=== PATIENT | female | born 1990 | race Caucasian/White ===

== ENCOUNTER 2023-03-05 01:29 | Inpatient (IN) | payer BC, OTHER ==
[2023-03-05] MEDS ORDERED: Oxytocin/Lactated Ringers 10 UNIT/1,000 ML BAG IV SCH (13:15)
[2023-03-05] MEDS: Lactated Ringers 1,000 ML IV SCH ×2 (13:53→17:52)
[2023-03-05] MEDS ORDERED: Penicillin G Potassium 5 MILLUNITS in Sodium Chloride 0.9% 100 ML IV ONE (14:00)
[2023-03-05 14:03] LABS: HEMATOCRIT 36.2 % (34.1-44.9); HEMOGLOBIN 12.3 gm/dl (11.2-15.7); MEAN CORPUSCULAR HEMOGLOBIN 31.5 pg (25.6-32.2); MEAN CORPUSCULAR VOLUME 92.6 fl (79.4-94.8); MEAN PLATELET VOLUME 9.5 fl (9.4-12.3); PLATELET COUNT,PLT 272 K/mm3 (182-369); RED BLOOD CELL COUNT 3.91 M/mm3 (3.98-5.22); WHITE BLOOD CELL COUNT,WBC 16.33 K/mm3 (3.98-10.04)
[2023-03-05] MEDS ORDERED: Nalbuphine 10 MG/0.5 ML Syringe IM ONE (17:10)
[2023-03-05] MEDS ORDERED: diphenhydrAMINE 50 MG/ML SDV IVPUSH PRN (17:45)
[2023-03-05] MEDS ORDERED: fentaNYL 100 MCG/2 ML SDV EPIDUR PRN (17:45)
[2023-03-05] MEDS ORDERED: Bupivacaine/fentaNYL/NS 100 ML Bag EPIDUR PRN (17:45)
[2023-03-05] MEDS ORDERED: ePHEDrine 50 MG/ML SDV IVPUSH PRN (17:45)
[2023-03-05] MEDS ORDERED: Penicillin G Potassium 5,000,000 Unit Vial ONE (19:12)
[2023-03-05 19:13] LABS: APPEARANCE,URINE CLEAR (Clear); BILIRUBIN,URINE NEGATIVE (Negative); COLOR,URINE YELLOW (Yellow); GLUCOSE,URINE NEGATIVE (Negative); KETONES,URINE 1+ (Negative); LEUKOCYTE ESTERASE,URINE 1+ (Negative); NITRITE,URINE NEGATIVE (Negative); OCCULT BLOOD,URINE 2+ (Negative); PROTEIN,URINE TRACE (Negative); UROBILINOGEN,URINE 0.2 (0.2-1.0)
[2023-03-05 19:33] LABS: BACTERIA,URINE FEW /hpf (FEW); MUCUS,URINE FEW /hpf (FEW); WBC,URINE 0-5 /hpf (0-5)
[2023-03-05] MEDS: Penicillin G Potassium 2.5 MILLUNITS in Sodium Chloride 0.9% 100 ML IV SCH ×2 (19:49→22:31)
[2023-03-06] MEDS ORDERED: Lidocaine 1% 10 ML MDV ONE
[2023-03-06] MEDS ORDERED: Metoclopramide 10 MG/2 ML SDV IVPUSH ONE (00:34)
[2023-03-06] MEDS ORDERED: ceFAZolin 2 GM in Sodium Chloride 0.9% 50 ML IV ONE (00:34)
[2023-03-06] MEDS ORDERED: Citric Acid/Sodium Citrate Solution 30 ML Cup PO ONE (00:34)
[2023-03-06] MEDS ORDERED: Tranexamic Acid 1,000 MG/10 ML Vial ONE (00:45)
[2023-03-06] MEDS ORDERED: Sodium Bicarbonate 8.4% 50 MEQ/50 ML SDV ONE (01:02)
[2023-03-06] MEDS ORDERED: fentaNYL 100 MCG/2 ML SDV ONE (01:02)
[2023-03-06] MEDS ORDERED: Lidocaine 2% with EPINEPHrine 1:200,000 20 ML SDV ONE (01:02)
[2023-03-06] MEDS ORDERED: Morphine PF 1 MG/ML Amp ONE (01:11)
[2023-03-06] MEDS ORDERED: ceFAZolin 2 GM Vial ONE (01:12)
[2023-03-06] MEDS ORDERED: Bupivacaine 0.25% 10 ML SDV ONE (01:21)
[2023-03-06] MEDS ORDERED: Bupivacaine 0.5% 10 ML SDV ONE (01:21)
[2023-03-06] MEDS ORDERED: Dexmedetomidine 200 MCG/2 ML SDV ONE (01:22)
[2023-03-06] MEDS ORDERED: Bupivacaine 0.5% 30 ML SDV ONE (01:22)
[2023-03-06] MEDS ORDERED: Oxytocin 10 Units/1 ML SDV ONE ×2 (01:27→02:03)
[2023-03-06] MEDS ORDERED: Lactated Ringers 1,000 ML ONE ×2 (01:28→02:03)
[2023-03-06] MEDS ORDERED: Misoprostol 200 MCG Tab ONE (01:36)
[2023-03-06] MEDS ORDERED: ePHEDrine 50 MG/ML SDV ONE (01:38)
[2023-03-06] MEDS ORDERED: Carboprost Tromethamine 250 MCG/1 ML Amp ONE (01:44)
[2023-03-06] MEDS ORDERED: Ondansetron 4 MG/2 ML SDV IVPUSH PRN (02:48)
[2023-03-06] MEDS ORDERED: diphenhydrAMINE 50 MG/ML SDV IVPUSH PRN ×2 (02:48→03:30)
[2023-03-06] MEDS ORDERED: fentaNYL 100 MCG/2 ML SDV IVPUSH PRN (02:48)
[2023-03-06 03:14] LABS: INR 0.93
[2023-03-06 03:15] LABS: PTT,PARTIAL THROMBOPLSTIN TIME 27.5 SECONDS (21.7-31.4)
[2023-03-06] MEDS ORDERED: ePHEDrine 50 MG/ML SDV IVPUSH PRN (03:30)
[2023-03-06] MEDS ORDERED: Acetaminophen/oxyCODONE 325-5 MG Tab PO PRN (03:30)
[2023-03-06] MEDS ORDERED: Dextrose 5%-Lactated Ringers 1,000 ML IV SCH (03:30)
[2023-03-06] MEDS ORDERED: Naloxone 0.4 MG/ML SDV IVPUSH PRN (03:30)
[2023-03-06] MEDS: Lactated Ringers 1,000 ML IV SCH (03:30)
[2023-03-06] MEDS: Penicillin G Potassium 2.5 MILLUNITS in Sodium Chloride 0.9% 100 ML IV SCH (04:07)
[2023-03-06] MEDS ORDERED: Methylergonovine 0.2 MG/ML SDV ONE (05:24)
[2023-03-06] MEDS ORDERED: Methylergonovine 0.2 MG/1 ML Amp IM ONE (06:00)
[2023-03-06 08:14] LABS: BASOPHILS ABSOLUTE AUTO 0.01 K/mm3 (0.01-0.08); BASOPHILS PERCENT AUTO 0.1 % (0.1-1.2); EOSINOPHILS PERCENT AUTO 0 (0.7-5.8); HEMATOCRIT 28.6 % (34.1-44.9); HEMOGLOBIN 9.6 gm/dl (11.2-15.7); IMMATURE GRAN ABSOLUTE AUTO 0.05 K/mm3 (0.00-0.10); IMMATURE GRAN PERCENT AUTO 0.3 % (<=1.0); LYMPHOCYTES ABSOLUTE AUTO 1.69 K/mm3 (1.18-3.74); LYMPHOCYTES PERCENT AUTO 11.4 % (19.3-51.7); MEAN CORPUSCULAR HEMOGLOBIN 31.8 pg (25.6-32.2); MEAN CORPUSCULAR HGB CONC 33.6 g/dl (32.2-35.5); MEAN CORPUSCULAR VOLUME 94.7 fl (79.4-94.8); MEAN PLATELET VOLUME 9.4 fl (9.4-12.3); MONOCYTES PERCENT AUTO 9.4 % (4.7-12.5); NEUTROPHILS ABSOLUTE AUTO 11.72 K/mm3 (1.56-6.13); NEUTROPHILS PERCENT AUTO 78.8 % (34.0-71.1); PLATELET COUNT,PLT 217 K/mm3 (182-369); RED BLOOD CELL COUNT 3.02 M/mm3 (3.98-5.22); WHITE BLOOD CELL COUNT,WBC 14.87 K/mm3 (3.98-10.04)
[2023-03-06] MEDS: Ketorolac 30 MG/ML SDV IVPUSH SCH ×2 (12:23→20:22)
[2023-03-06 17:21] LABS: HEMATOCRIT 26.2 % (34.1-44.9); HEMOGLOBIN 8.6 gm/dl (11.2-15.7); MEAN CORPUSCULAR HEMOGLOBIN 31.5 pg (25.6-32.2); MEAN CORPUSCULAR HGB CONC 32.8 g/dl (32.2-35.5); MEAN PLATELET VOLUME 8.9 fl (9.4-12.3); PLATELET COUNT,PLT 189 K/mm3 (182-369); RED BLOOD CELL COUNT 2.73 M/mm3 (3.98-5.22); WHITE BLOOD CELL COUNT,WBC 12.73 K/mm3 (3.98-10.04)
[2023-03-07] MEDS ORDERED: Ketorolac 30 MG/ML SDV IVPUSH SCH (01:45)
[2023-03-07] MEDS: Ketorolac 30 MG/ML SDV IVPUSH SCH (01:58)
[2023-03-07 06:32] LABS: HEMATOCRIT 25.5 % (34.1-44.9); HEMOGLOBIN 8.4 gm/dl (11.2-15.7); MEAN CORPUSCULAR HEMOGLOBIN 31.7 pg (25.6-32.2); MEAN CORPUSCULAR HGB CONC 32.9 g/dl (32.2-35.5); MEAN CORPUSCULAR VOLUME 96.2 fl (79.4-94.8); MEAN PLATELET VOLUME 9.4 fl (9.4-12.3); PLATELET COUNT,PLT 190 K/mm3 (182-369); RED BLOOD CELL COUNT 2.65 M/mm3 (3.98-5.22); WHITE BLOOD CELL COUNT,WBC 12.11 K/mm3 (3.98-10.04)
[2023-03-07] MEDS: Acetaminophen/oxyCODONE 325-5 MG Tab PO PRN ×3 (08:49→23:12)
[2023-03-07 13:22] LABS: HEPATITIS B SURFACE AG NONREACTIVE (NONREACTIVE)
[2023-03-08] MEDS: Acetaminophen/oxyCODONE 325-5 MG Tab PO PRN ×2 (04:10→08:56)
== END 2023-03-08 12:07 | disposition home or self-care (01) | DRG 540 ==
LOC: JD.OB 01:29 → UNDOADMOB 12:48 → INTOOBSV 03-06 01:29 → OBSVTOIN 03-06 01:29 → JD.OB 03-06 01:30
PROVIDERS: ADMIT Family Medicine; ATTEND Family Medicine
PROC: 10H07YZ Insertion of Other Device into Products of Conception, Via Natural or Artificial Opening (ICD-10-PCS; principal; 2023-03-06)
PROC: 10D00Z1 Extraction of Products of Conception, Low, Open Approach (ICD-10-PCS; 2023-03-06)
DX: O48.0 Post-term pregnancy (principal); O34.211 Maternal care for low transverse scar from previous cesarean delivery; O62.1 Secondary uterine inertia; O72.1 Other immediate postpartum hemorrhage; O42.12 Full-term premature rupture of membranes, onset of labor more than 24 hours following rupture; O90.2 Hematoma of obstetric wound; O77.0 Labor and delivery complicated by meconium in amniotic fluid; Z37.0 Single live birth; Z3A.42 42 weeks gestation of pregnancy
CPT/HCPCS: 01967; 36415; 36430; 51702; 59025; 81001; 85025; 85027; 85384; 85461; 85610; 85730; 86592; 86762; 86803; 86850; 86900; 86901; 87086; 87340; 94762; A9270-GY; G0433; J0690; J1885; J2210; J2274; J2405; J2540; J2590; J2765; J2790; J3010; J3490; J7120; J7121